=== PATIENT | male | born 1990 | race Hispanic/Latino ===

== ENCOUNTER 2019-12-20 11:33 | Emergency (ER) | payer OTHER, SELFPAY ==
--- NOTE | 2019-12-20 12:27 | RAD ---
Exam: XR Hand Rt 3 View STANDARD HISTORY: Injury after falling off roof. Laceration to third digit right hand. COMPARISON: None FINDINGS: There are 2 separate curvilinear osseous densities seen just anterior to the proximal interphalangeal joint of the right middle finger suggestive of tiny avulsion injuries. The exact donor site is difficult to visualize but possibly arises from the volar aspect base of the middle phalanx. There do es appear to be soft tissue irregularity along the volar aspect right middle finger at the level of the proximal interphalangeal joint suggesting laceration. No additional fracture or dislocation is identified. IMPRESSION: Avulsion fracture fragments just anterior and slightly lateral to the proximal interphalangeal joint right middle finger. The exact donor site is difficult to determine but may arise from the base of the middle phalanx.
[2019-12-20] MEDS ORDERED: Adacel (T-DAP) 0.5 ML SYRINGE ONE (12:47)
[2019-12-20] MEDS ORDERED: Lidocaine 1% PF 5 ML VIAL ONE (12:53)
--- NOTE | 2019-12-20 13:38 | RAD ---
RIGHT FINGER THREE VIEWS: 12/20/19 HISTORY: Fall, laceration to the right third digit. FINDINGS/IMPRESSION: There are displaced fracture fragments from the volar aspect of the base of the middle phalanx and ad jacent skin laceration is also seen. POS: [facility]
[2019-12-20] MEDS ORDERED: Bacitracin 1 PK ONE (14:39)
== END 2019-12-20 14:55 | disposition home or self-care (01) ==
LOC: ERS 11:33
DX: S62.612B Displaced fracture of proximal phalanx of right middle finger, initial encounter for open fracture (principal); F17.210 Nicotine dependence, cigarettes, uncomplicated; W17.89XA Other fall from one level to another, initial encounter; Z23 Encounter for immunization
CPT/HCPCS: 12002; 90471; 90715; J2001